=== PATIENT | female | born 1980 | race Caucasian/White ===

== ENCOUNTER → 2018-02-04 | Outpatient (CLI) | payer OTHER | END | disposition home or self-care (01) | LOC: SONOGRAMA 14:46 | DX: N64.89 Other specified disorders of breast (principal) ==

== ENCOUNTER → 2018-02-05 | Outpatient (CLI) | payer OTHER | END | disposition home or self-care (01) | LOC: MAMO-SONO 15:24 | DX: Z12.31 Encounter for screening mammogram for malignant neoplasm of breast (principal); N64.89 Other specified disorders of breast ==

== ENCOUNTER 2018-04-10 12:35 | Emergency (ER) | payer OTHER ==
[~2018-04-10] VITALS: Ht 154.9 cm; Wt 74.8 kg
== END 2018-04-10 16:03 | disposition home or self-care (01) ==
LOC: ER 12:35
DX: S80.02XA Contusion of left knee, initial encounter (principal); S50.02XA Contusion of left elbow, initial encounter; S60.212A Contusion of left wrist, initial encounter; W18.39XA Other fall on same level, initial encounter; Y93.89 Activity, other specified; Y92.69 Other specified industrial and construction area as the place of occurrence of the external cause; Y99.8 Other external cause status

== ENCOUNTER 2018-05-14 08:35 | Emergency (ER) | payer OTHER ==
[~2018-05-14] VITALS: Ht 157.5 cm; Wt 81.6 kg
== END 2018-05-14 11:06 | disposition home or self-care (01) ==
LOC: ER 08:35
DX: B34.9 Viral infection, unspecified (principal)

== ENCOUNTER 2018-12-25 13:10 | Outpatient (CLI) | payer OTHER | END 2018-12-25 13:14 | disposition home or self-care (01) | LOC: RAD 501 13:10 | DX: M25.562 Pain in left knee (principal) ==

== ENCOUNTER → 2019-07-15 | Outpatient (CLI) | payer OTHER | END | disposition home or self-care (01) | LOC: RAD 12:30 | DX: M25.511 Pain in right shoulder (principal) ==

== ENCOUNTER 2020-01-11 10:51 | Outpatient (CLI) | payer OTHER | END 2020-01-11 11:03 | disposition home or self-care (01) | LOC: RAD 10:51 | DX: R05 Cough (principal) ==

== ENCOUNTER 2023-02-20 14:11 | Outpatient (CLI) | payer OTHER | END 2023-02-20 14:23 | disposition home or self-care (01) | LOC: RAD 14:11 | PROVIDERS: ATTEND Orthopaedic Surgery | DX: M25.511 Pain in right shoulder (principal) ==